=== PATIENT | male | born 1995 | race American Indian/Alaskan Native ===

== ENCOUNTER 2021-06-23 00:13 | Emergency (ER) | payer SELFPAY ==
[2021-06-23] MEDS ORDERED: TETANUS,DIPHTHERIA TOXOID ADULT 0.5 ML INJ IM ONE (00:18)
[2021-06-23 00:51] LABS: Basophils % (Auto) 0.4 % (0.0-1.8); Eosinophils # (Auto) 0.1 K/mm3 (0.0-0.4); Hematocrit 45.7 % (35.5-45.6); Hemoglobin 14.7 gm/dl (11.8-15.2); Lymphocytes # (Auto) 2.8 K/mm3 (1.2-5.4); Lymphocytes % (Auto) 22.4 % (13.4-35.0); Mean Corpuscular HGB Conc 32 % (32-34); Monocytes # (Auto) 0.9 K/mm3 (0.0-0.8); Platelet Count 257 K/mm3 (140-440); Red Blood Count 6.67 M/mm3 (3.65-5.03)
[2021-06-23 00:55] LABS: Mean Corpuscular Volume 69 fl (84-94)
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
[2021-06-23 01:09] LABS: Alanine Aminotransferase 23 units/L (7-56); Albumin 4.6 g/dL (3.9-5); BUN/Creatinine Ratio 12; Blood Urea Nitrogen 13 mg/dL (9-20); Calcium 9.7 mg/dL (8.4-10.2); Hemolysis Index 19
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
[2021-06-23] MEDS ORDERED: MORPHINE 4 MG/1 ML INJ IV ONE (02:10)
[2021-06-23] MEDS ORDERED: ONDANSETRON 4 MG/2 ML INJ IV ONE (02:10)
[2021-06-23 02:26] VITALS: BP 106/67
== END 2021-06-23 02:26 | disposition short-term general hospital (02) ==
LOC: ED 00:13
DX: S82.142B Displaced bicondylar fracture of left tibia, initial encounter for open fracture type I or II (principal); R29.818 Other symptoms and signs involving the nervous system; W34.09XA Accidental discharge from other specified firearms, initial encounter; Y93.89 Activity, other specified; Y92.89 Other specified places as the place of occurrence of the external cause; Y99.8 Other external cause status
CPT/HCPCS: 36415; 73562; 73706; 80053; 85025; 86850; 86900; 86901; 90471; 90714; 96365; 96375; 99285; J0690; J2270; J2405; Q9967